=== PATIENT | female | born 1985 | race Caucasian/White ===

== ENCOUNTER → 2018-02-18 14:43 | Outpatient (CLI) | payer MEDICAID, SELFPAY ==
[2018-02-18 21:51] LABS: M R Staph aureus DNA By PCR Negative (Negative); Probe Check PASS; Specimen Processing Control PASS
--- OUTSIDE RECORDS SUMMARY | 2018-04-16 09:12 | XMS RPT_ITS ---
:1985 Author Organization OHIP Care Team Providers Name Role Phone Kervin Yost Attending Unavailable Kervin Yost Referring Unavailable KENDRA LR Primary Care Unavailable NewbillLuisito Admitting Unavailable NewbillLuisito Attending Unavailable Yeager, Edward E Primary Care Unavailable NewbillLuisito Attending Unavailable Yeager, Edward E Primary Care Unavailable Newbill, Luisito Lal Admitting Unavailable Newbill, Luisito Lal Admitting Unavailable Newbill, Luisito Lal Attending Unavailable Yeager, Edward E Primary Care Unavailable PROBLEMS PROBLEMS No Problem Records FoundPROCEDURES PROCEDURES No Procedure Records FoundRESULTS RESULTS M R STAPH AUREUS Collected: 02/18/2018 Status: F Source: KRISTY DNA BY PCR 2:43 PM [facility] REPOSITORY Order Comment: Source: NASAL SWAB TYPE CODE TESTS RESULT OUT OF RANGE REFERENCE UNITS LAB L8200.1100 Negative Normal MRSA Negative RESULT Performed By: #### L8200.1000 #### [facility] [address] [place], [address] Observed: 12/09/2017 Status: F Source: CARMEN C URINE 4:53 PM [facility] REPOSITORY Final Report: Rare Normal skin rebecca isolated Performed By: #### [id number] #### [facility] Subsection [address] [place] [address] ALLERGIES ALLERGIES DATE TYPE / CODE NAME / CODE REACTION SEVERITY SOURCE 01/12/2014 Drug No Known Unknown [facility] Allergy/416 Allergies/K00958 Hospital 637825(SNOM 0388(RXNORM) Repository ED CT) Drug/466668 Dilaudid N\T\V Sabianist 003(SNOMED [facility]) System Repository Drug/543874 morphine [id number] Sabianist 003(SNOMED [facility]) System Repository Drug/072067 No Known Sabianist 003(SNOMED Allergies [facility]) System Repository Drug/339328 Dilaudid Sabianist 003(OMED [facility]) System Repository ENCOUNTERS ENCOUNTERS ADMIT/DISCHARGE ACCOUNT NUMBER ADMITTING ENCOUNTER LOCATION SOURCE CLASS 02/18/2018 [id number] [facility] ding[facility] Repository 02/18/2018/02/19/20 [id number] 18 Luisito Lal g:QCareRoom: [facility] Repository 12/09/2017/12/10/19 [id number] [facility] Luisito Lal [facility] ding:.Lab Health System Rep[facility] 12/09/2017[facility]12/10[id number] Luisito Lal g:QCareRoom: [place] [address] Health System Repository 12/09/2017 [id number] Ambulatory [address] [place] [address] Repository PAYERS PAYERS ENCOUNTER GUARANTOR PAYER SUBSCRIBER SOURCE 02/18/2018 CLARK Jey [id number] Primary CLARK Gallo [facility] Insurance:ERIBERTO STENTZDOB: [facility] [id number] [address]Ria: 419 PLANPolicy Number: Repository [phone] ) [id number] Date:[id number] [address]VL: 02/18/2018 Secondary NOT GIVENUNK [place] Insurance:SELF PAY [facility] Number: Effective Repository Date:2018-02-18 02/18/2018 CLARK Khanna Primary CLARK Jackson STENTZDOB: Insurance:Formerly named [facility] STENTZDOB: [facility] [id number] [place], [place] Number: [place] [address]Kek: Date:2018-02-18Tel: [phone] (HP) Name:CD:[id number] (HP)Tel: (000) [address], [address] ([place]) [place] [address]RD: 12/09/2017 CLARK Khanna Primary CLARK Jackson STENTZDOB: [facility] [id number] [facility] Number: [place] [address]Wsi: Date:2017-12-09Tel: [phone] (HP) Name:CD:[id number] (HP)Tel: (000) [address], [address] ([place]) [place] [address]FB: 12/09/2017 CLARK Primary CLARK Jackson STENTZDOB: Insurance:Formerly named [facility] STENTZDOB: [facility] [id number] [place], [place] Number: [place] [address]Axo: Date:2017-12-09Tel: [phone] (HP) Name:CD:[id number] (HP)Tel: (000) [address], [address] ([place]) [place] [address]QM: 12/09/2017 CLARK STENTZDOB: Primary CLARK STENTZDOB: [place] Insurance:[place] [id number] [place], [place] PlanPolicy Number: [place], [place] [id number]: [id number] [id number]: Date:Plan () Name:[facility] O Betsey () [address], [place] [address]FT:
== END ==
PROVIDERS: Referring Provider Otolaryngology; Visit Provider Otolaryngology
DX: R09.81 Nasal congestion (principal)
CPT/HCPCS: 87641

== ENCOUNTER 2023-05-31 09:27 | Outpatient (RCR) | payer MEDICAID, SELFPAY ==
--- NOTE | 2023-05-31 10:51 | HP.PTEVAL ---
Patient's Visit Information Visit Information Visit Information: CLARK NOLASCO is a 38 year old F referred to Physical Therapy by Dr. Evan Villalobos DO with a diagnosis of Cervical HNP (C5-C6). Date of Evaluation: 05/31/23 Physical Therapist: WARREN Callahan Visit Plan Frequency: 2x /Week Duration: 4 Weeks Plan: 2X/ week for 4 weeks for neck ROM, posture exercises, UE AROM, UE strength with HEP....may try some manual traction and see if that helps. Subjective Subjective: For years she has had pain in her neck and radiating down her arms. She has had needling in her neck and did not help. He saw Dr Villalobos and they had an MRI about a year ago and now it is worse and they will do another one. Her MRI did show a HD at C5-C6. She has neck pain and pain across her shoulders and down both shoulder blades and it tingles and batitsa. She has B hand weakness and numbness in both hands (pointer and middle fingers). She is L handed. She uses a ice pack and MH pack to make her comfortable to lay in bed and puts her arms above her head to make it comfortable. Pain neck pain: Pain Intensity (Out of 10): 6 R arm pain: Pain Intensity (Out of 10): 6 L arm pain: Pain Intensity (Out of 10): 4 Objective Objective: L handed: C-spine AROM: Flexion 76, ext 10%, SB R 50% (increase pain) and SB L L 50%, Rot R 75 and Rot L 80% Bicep reflex R 0/3 and L 2+/3 UE AROM: B shoulder flexion approx 120 degrees and increase pain B shoulder approx ABD 120 degrees UE MMT: R shoulder flex 5.1 and L 5 R shoulder ABD 5.1 and L 4.3 R shoulder ER 6 and L 5.4 R shoulder IR 5.9 and L 6.8 Palpation: Tender along c-spine paraspinals and along the shoulders. Posture: sit with decent upright posture. Balance/Special Test Scores Oswestry Neck Score: 39 Goals Goal 1:: I HEP Goal Time Frame: 4-6 Weeks Goal 2:: Increase neck AROM (C-spine AROM: Flexion 76, ext 10%, SB R 50% (increase pain) and SB L L 50%, Rot R 75 and Rot L 80%) Goal Time Frame: 4-6 Weeks Goal 3:: Decrease neck and arm pain to 3/10 with ADL's Goal Time Frame: 4-6 Weeks Rehabilitation Potential Rehabilitation Potential: Good Anticipated Interventions Patient/Client Instruction: Educate patient on: Condition and Plan of Care For the Purpose of:: To decrease pain, To increase ROM, To improve nutrient delivery to tissue, To improve muscle performance and motor function, To improve ability to perform ADL's, To increase tolerance to activity/condition/position, To improve performance and independence with ADL's, To decrease level of supervision to perform tasks, To improve ability of physical actions for home/community/work/leisure, To improve health of tissue, To decrease soft tissue restriction and To increase flexibility/ROM Therapeutic Exercise to Include: Strength training, Body mechanics, Postural training, Flexibilty training, Passive ROM, Active ROM and Scapular Strength/Stabilization For the Purpose of:: To decrease pain, To improve muscle performance and motor function, To improve ability to perform ADL's, To increase tolerance to activity/condition/position, To improve performance and independence with ADL's, To decrease level of supervision to perform tasks, To improve ability of physical actions for home/community/work/leisure, To improve gait and locomotor functions, To decrease soft tissue restriction and To increase flexibility/ROM Manual Therapy Techniques to Include: Passive ROM and Soft tissue mobilization For the Purpose of:: To decrease pain, To increase ROM, To improve nutrient delivery to tissue, To improve muscle performance and motor function, To improve ability to perform ADL's, To increase tolerance to activity/condition/position, To improve performance and independence with ADL's, To decrease level of supervision to perform tasks, To improve ability of physical actions for home/community/work/leisure, To improve health of tissue, To decrease soft tissue restriction and To increase flexibility/ROM Thermo therapy (hot pack): Yes Ultrasound (thermal/non thermal): Yes For the Purpose of:: To decrease pain, To increase ROM and To improve nutrient delivery to tissue Text: Thank you for the opportunity to evaluate your patient. For Medicare and Medicare HMO plans, please review the plan of care and approve it. It will need to be FAXED BACK to us at [phone] for Medicare purposes. For Medicare only, by signing this I certify the plan of care. Please let me know if there are questions or concerns regarding this plan of care. Physician Signature: Date:
== END 2023-05-31 19:00 | disposition home or self-care (01) ==
LOC: PT 09:27
PROVIDERS: Referring Provider Orthopaedic Surgery; Visit Provider Orthopaedic Surgery
DX: M50.20 Other cervical disc displacement, unspecified cervical region (principal)
CPT/HCPCS: 97161; J2405

== ENCOUNTER → 2023-06-17 | Outpatient (CLI) | payer MEDICAID, SELFPAY ==
--- NOTE | 2023-06-17 12:30 | MRI_ITS ---
EXAM: MR CERVICAL SPINE WITHOUT INTRAVENOUS CONTRAST CLINICAL INDICATION: pain TECHNIQUE: Multiplanar and multisequence MR images of the cervical spine without intravenous contrast were performed. COMPARISON: Prior plain film May 27, 2023 showed mild disc space narrowing and mild C5-6 spondylosis. FINDINGS: VERTEBRAE: Straightening of the usual lordotic curvature. Normal craniocervical junction and cervicothoracic junction. No spondylolisthesis. SPINAL CORD: No edna cord impingement. Normal cord signal intensity. SOFT TISSUES: Unremarkable. No prevertebral soft tissue swelling. LYMPH NODES: Unremarkable. There is no cervical adenopathy. DISCS/SPINAL CANAL/NEURAL FORAMINA: C2-C3: Unremarkable. Normal disc height and morphology. Normal spinal canal. Normal neuroforamina. C3-C4: Unremarkable. Normal disc height and morphology. Normal spinal canal. Normal neuroforamina. C4-C5: Unremarkable. Normal disc height and morphology. Normal spinal canal. Normal neuroforamina. C5-C6: There is mild decreased height at C5-6. There is midline-left posterior osteophytes and associated mildly protruding disc, narrowing the ventral midline thecal sac to roughly 9 mm left lateral recess and proximal neural foramen, osteophyte-disc complex projecting roughly 4 mm to the left. C6-C7: Unremarkable. Normal disc height and morphology. Normal spinal canal. Normal neuroforamina. C7-T1: Unremarkable. Normal disc height and morphology. Normal spinal canal. Normal neuroforamina. MRI/Spine Cervical (Routine) IMPRESSION: Posterior ganwaji-ljx-uoku osteophyte-disc complexes at C5-6. Borderline spinal stenosis and proximal left neural foraminal stenosis at C5-6. No edna cord impingement. Electronically Signed: Estephania Orozco MD at 8:19 EDT ,
== END | disposition home or self-care (01) ==
LOC: MRI 11:30
PROVIDERS: Referring Provider Orthopaedic Surgery; Visit Provider Orthopaedic Surgery
DX: M50.20 Other cervical disc displacement, unspecified cervical region (principal)
CPT/HCPCS: 72141

== ENCOUNTER 2023-07-29 14:31 | Observation (INO) | payer MEDICAID, SELFPAY ==
--- NOTE | 2023-07-18 12:49 | EKG12_ITS ---
Test Reason : PRE-OP Blood Pressure : / mmHG Vent. Rate : 071 BPM Atrial Rate : 071 BPM P-R Int : 100 ms QRS Dur : 096 ms QT Int : 418 ms P-R-T Axes : 063 030 063 degrees QTc Int : 454 ms Sinus rhythm with short NC Otherwise normal ECG No previous ECGs available Confirmed by LEANNE RAMIREZ, CARMEN ([id number]), visual effects editor SASHA GARCIA ([id number]) on 07/22/2023 10:18:26 AM Referred By: Evan Villalobos Confirmed By:JACEY PERDOMO MD
[2023-07-18 13:28] LABS: Absolute Lymphocyte Count 2.04 X10^3/uL (0.83-4.51); Absolute Neutrophil Count 5.4 X10^3/uL (2.0-7.7); Basophil# 0.06 X10^3/uL; Basophil% 0.7 % (0-1); Eosinophil# 0.16 X10^3/uL; Eosinophils% 1.9 % (0-5); Hematocrit 43.8 % (37-47); Hemoglobin 14.4 g/dL (12.0-15.0); Lymphocyte # 2.04 X10^3/ul (0.83-4.51); Lymphocyte % 24.4 % (19-41); Mean Corp Hgb Conc 32.9 g/dL (32-36); Mean Corpuscular Volume 88.3 fL (81-99); Mean Platelet Vol. 9.8 fl (6.2-12.0); Monocyte# 0.68 X10^3/uL; Monocyte% 8.1 % (0-10); NRBC Flagged by Analyzer 0 % (0-5); Neutrophil # 5.41 X10^3/uL (2.7-7.7); Neutrophil % 64.7 % (47-70); Platelet Count 423 K/mm3 (150-450); RBC Distribution Width CV 14.2 % (11.6-14.6); RBC Distribution Width SD 45.6 fl (35.1-43.9); Red Blood Count 4.96 M/mm3 (4.2-5.4); White Blood Count 8.4 K/mm3 (4.4-11.0)
[2023-07-18 13:36] LABS: Partial Thromboplast Time 29.1 Seconds (24.1-36.2)
[2023-07-18 13:55] LABS: AST(SGOT) 39 U/L (15-37); Alanine Aminotransfer ALT/SGPT 97 U/L (13-56); Albumin, Serum 3.9 g/dL (3.2-5.0); Alkaline Phosphatase 113 U/L (45-117); Bilirubin, Direct 0.15 mg/dL (0.00-0.30); Globulin 3.4 g/dL (2.2-4.2); Magnesium 2.3 mg/dL (1.6-2.6); Protein, Total 7.3 g/dL (6.4-8.2)
[2023-07-18 13:59] LABS: Anion Gap 6 (5-15); BUN 13 mg/dL (7-18); BUN/Creat Ratio 16.8 RATIO (10-20); Calcium,Total 9.9 mg/dL (8.5-10.1); Chloride 107 mmol/L (98-107); Creatinine, Serum 0.77 mg/dL (0.55-1.02); EST Glomerular Filtration Rate 89 mL/min (>60); Est Glom Filt Rate - Afr Amer 107 mL/min (>60); Glucose 84 mg/dL (74-106); Sodium Level 138 mmol/L (136-145)
[2023-07-18 14:42] LABS: HIV - WCH Non-Reactive (Nonreactive); Hepatitis B Surface Antibody Reactive; Hepatitis C Antibody Non-Reactive (Nonreactive)
[2023-07-20 07:09] LABS: Hepatitis A AB, Total Negative (Negative)
--- NOTE | 2023-07-26 13:21 | PCM.HP.BLA ---
History and Physical Add?Addendum MR#: [id number] Acct: [id number] Name: ODALYS NOLASCO Rep #: [id number] : 1985 Provider: Dr. Evan Villalobos DO Age/Sex: 38/F Location: [facility] [place].MARLEN Status: Signed Intake Vital Signs 05/26/2412:12 Height 5 ft 7 in Weight: 207 lb 6 oz BMI 32.4 Intake Visit Reasons: CERVICAL SPINE Chief Complaint: Neck pain Accompanied by: Self Is patient in pain?: Yes Allergies morphine Allergy (Verified 05/27/23 13:18) Nauseaoxycodone Allergy (Verified 05/27/23 13:18) Nausea Medications buspirone 10 mg tablet 15 mg PO TID 05/27/23 [History Confirmed 05/27/23] fluoxetine 20 mg capsule mg PO 05/27/23 [History Confirmed 05/27/23] hydroxyzine HCl 25 mg tablet 25 mg PO BID PRN 05/27/23 [History Confirmed 05/27/23] PFSH Medical History (Updated 05/27/23 @ 13:[address] Evan Villalobos DO) Back problem Gallstones IBS (irritable bowel syndrome) PCOS (polycystic ovarian syndrome) Vitamin deficiency Surgical History History of arthroscopic knee surgery History of delivery History of dilatation and curettage Family History Daughter DiabetesGrandmother Hypertension CVA (cerebral vascular accident)Mother HypertensionUncle Lung cancer Social History household members: children Smoking Status: Current every day smoker alcohol intake: never HPI CERVICAL SPINE Details: This documentation accurately reflects the service provided and the decisions made by me, Dr. Evan Villalobos DO 05/27/23 1308. Part of today?s visit was documented by Yina LOVELL , acting as scribe. ODALYS NOLASCO is a 38 year old F here today for Cervical neck pain. Patient states that her neck pain is on the right side and has been going on the past month. Patient states no injury to it. Patent states she is taking ibuprofen for her pain. Patient is using heat but it isn't really helping. Patient has noticed the past month, month in a half her feet are hurting. Patient hands are numb and her middle finger and ring finger on the right hand don't want to bend completely. Patient does have radiation going down both arms. Both shoulder blades feel like they are on fire. Patient hasn't had any imagining done recently. Odalys Green after not having been seen in a couple of years. The past month her neck has gotten much worse. She gets posterior headaches now the pain however goes more down the right arm instead of the left but she still has some pain down the left arm 2. It goes to her thumb and index finger. She is describing a C6 radiculopathy. The pain has been worse than it ever was before. On a scale of 0-10 it is a 9 almost all the time. She states that she cannot live this way. When I walked in the room the patient had her right arm on top of her head. Every time I have ever seen this in my 38-year career it has been because of a ruptured disc on the side consistent with the arm. This relieves the pressure no doubt on the nerve. On examination she has a very positive Spurling's to the right side and a little bit positive to the left though not as bad. She also has pain down the arm with flexion of her neck or extension of her neck. She has some weakness of the extensors of the wrist on the right as compared to the left. This is very significant. She has 1+ triceps reflexes bilaterally. The right brachioradialis reflex is absent the left 1 is 1+. She also has a decreased to biceps reflex on the right as compared to the left. She has no long tract signs. Clonus is absent and Babinski's were downgoing. I x-rayed her today in the AP and lateral projection. I compared the x-rays to AP and lateral x-rays that we did 2 years ago. The C5-6 space is decreased a little compared to 2 years ago. Impression is that of herniated disc C5/6 with severe right C6 radiculopathy intractable pain and neurological deficit. No doubt she will need surgical intervention at some point. We also will need an MRI scan of the cervical spine. She will call my office tomorrow. Coding Level of Care Code Off vis,est,level 3 Diagnoses HNP (herniated nucleus pulposus), cervical M50.20
[2023-07-29] VITALS (15 sets, daily range): BP systolic 107–134; BP diastolic 58–84; PULSE 65–88; RESP 12–18; TEMP 36.2–36.6; O2SAT 92–99; BMI 32.8
[2023-07-29] MEDS: Lactated Ringers 1,000 ML 15 ML IV ×2 (08:32→14:51)
[2023-07-29] MEDS: dexAMETHasone 10 MG/ML Vial 8 MG IV (08:34)
[2023-07-29] MEDS: Magnesium 1 GM over 15 mins IV (08:34)
[2023-07-29] MEDS: Acetaminophen 500 MG Tablet 1000 MG PO (08:56)
[2023-07-29 09:26] LABS: Bedside Glucose 90 mg/dL (74-106)
--- NOTE | 2023-07-29 10:20 | DISC_PTH ---
PATIENT: CLARK CASE LOC: MS3 U#:[id number] AGE/SX: 38/F ROOM: [facility] RE07/29/[address]: Dr. Evan Villalobos DO : 1985 BED: 1 DIS: 07/30/2023 SPEC #: [id number] RECD: 07/29/23 18:07 STATUS: RAZIA REReena #: [id number] NORMA: 07/29/23 10:[address]: Evan Villalobos DEPT: SURGICAL PATHOLOGY RECD BY: Ranjana Lowe ENTERED: 07/30/23 10:13 SP TYPE: DISC OTHR DR: MD Dr. Noé Locke, DO No Primary Care Phys Tissues: Intervertebral disc, NOS Procedures: Surgery Specimen Level III HEADER OPERATION: ERAS, Anterior cervical fusion C5-6 PRE-OP DIAGNOSIS: Herniated nucleus pulposis, cervical TISSUE SUBMITTED: C5-6 disc MICROSCOPIC DIAGNOSIS C5-C6 disc: Fragments of fibrocartilaginous and hyaline cartilaginous tissue with focal degenerative and reactive changes. BRYNN/ 07/31/23 MICROSCOPIC DESCRIPTION Slides are reviewed. GROSS DESCRIPTION Received in fixative is one container labeled with the patient's name and designated C5-6. disc The specimen consists of multiple fragments of negron indurated tissue that in aggregate measure 5.0 x 3.0 x 0.3cm. The specimen is totally submitted in two cassettes. BRYNN/ 07/30/23 TC:5 CPT:76563
[2023-07-29] MEDS: Cefazolin 2 GM in 0.9% Normal Saline (100mL Bag) 100 ML IV (11:18)
--- NOTE | 2023-07-29 11:45 | RAD_ITS ---
STUDY: X-RAY - CERVICAL SPINE REASON FOR EXAM: Female, 38 years old. ANTERIOR FUSION C5-6 TECHNIQUE: Single lateral view(s) of the cervical spine were obtained. COMPARISON: None FINDINGS: The localization instrument is seen anterior to the C5-C6 disc space level. RAD/Spine 1 View Any Level IMPRESSION: The localization instrument is seen anterior to the C5-C6 disc space level. Electronically Signed: Wade Castillo MD at 13:31 EDT ,
[2023-07-29] MEDS: Heparin 10,000 UNITS/10 ML Vial 10000 UNITS (12:07)
[2023-07-29] MEDS: THROMBIN (RECOMBINANT) 20,000 UNIT VIAL 20000 UNIT TOPICAL (12:07)
--- NOTE | 2023-07-29 12:20 | RAD_ITS ---
STUDY: X-RAY - CERVICAL SPINE REASON FOR EXAM: Female, 38 years old. ANTERIOR FUSION C5-6 TECHNIQUE: Single lateral view(s) of the cervical spine were obtained. COMPARISON: None FINDINGS: The localization instrument is seen anterior to the C5-C6 disc space level. RAD/Spine 1 View Any Level IMPRESSION: The localization imaging is seen anterior to the C5-C6 disc space level. Electronically Signed: Wade Castillo MD at 14:48 EDT ,
--- NOTE | 2023-07-29 12:32 | RAD_ITS ---
STUDY: X-RAY - CERVICAL SPINE REASON FOR EXAM: Female, 38 years old. ANTERIOR FUSION C5-6 -- IMAGE 3 TECHNIQUE: Single lateral view(s) of the cervical spine were obtained. COMPARISON: Comparison is made with prior study done earlier today. FINDINGS: Normal anterior atlantoaxial articulation. Normal odontoid process. There is straightening of the normal cervical lordosis. The patient is status post anterior fusion and disc placement at the C5-C6 level. The soft tissue structures are unremarkable. RAD/Spine 1 View Any Level IMPRESSION: Status post anterior fusion and disc replacement at the C5-C6 level. Electronically Signed: Wade Castillo MD at 10:29 EDT ,
--- NOTE | 2023-07-29 14:39 | SUR.PHASEI ---
Made Dr. Villalobos aware pt received 8 mg of decadron in preop at 0845, then 8 more mg in OR at 1145. no new orders given
--- NOTE | 2023-07-29 14:44 | OP.PCM_ITS ---
Report of Operation Description of Surgical Findings:: Preoperative diagnosis: Herniated disc with foraminal stenosis bilaterally at C5-6 Postoperative diagnosis: Same Procedures: #1 anterior cervical fusion C5-6 CPT code 33163 #2 anterior spine plate C5-6 CPT code 75810/59 #3 insertion of cage C5-6 CPT code 87543 #4 bone marrow aspirate right iliac crest CPT code 23998 #5 allograft bone in cage C5-6 CPT code 55008 Surgeon: Dr. Villalobos Peer Health Promoter: Jia from surgery CLEAT FEEDER Anesthesia: General endotracheal by Cleo dna sequencing associate EBL: Less than 20 cc Drains: 1/4 inch Yara Complications: None Procedure: Patient was taken to the OR where she was placed in spine position on the operating table she was then placed under general endotracheal anesthesia. Neuromonitoring placed her leads on the patient. A Oden catheter was inserted. The neck and right crest area were then prepped and draped standard fashion. First I made a puncture incision over the right iliac crest entered with a Jamshidi needle tamped into place under the cortex. 50 cc of BMA were then obtained and these were handed off to the plastic surgery technician in the room. She the stem cells from all other cells concentrated them 10 times into about 4 5 cc and gave them back to us. I then made an incision starting at the predetermined point it was determined with an x-ray prior to surgery. In the midline and curving to the edge of the right sternocleidomastoid muscle in Langers lines. Subcutaneous tissues were incised the length of the skin incision. I then undermined the subcutaneous tissues in a cephalad and caudad direction put a self-retaining retractor in place. I then split the platysma longitudinally in line with its fibers. Then exploited the 3 tracheal fashion followed by the explantation of the 3 cervical fascia. In this fashion I was able to move the carotid to the right and the esophagus and trachea to the left exposing the precervical area. The disc thought to be C5-6 was then marked with a needle in it and an intraoperative x-ray was taken to confirm that we were indeed at C5-6. I marked the disc with cautery and remove the needle. Cauterized the edge of the coli muscles on either side elevated and gently off the disc base and the shadow line retractors were then put in place given us good exposure. I cut the anterior annulus with a 15 blade and removed the nucleus from then the disc base with pituitary rongeurs more nucleus was removed with pituitary rongeurs all the way back to near the posterior longitudinal ligament. Cartilage off the endplates was then removed with sharp small curettes. I put the distractor initially on the patient's left side directing the right side of the space given me good axis to the uncinate process and the back. Using a jennifer bur I was able to bur down the uncinate process into a thin shell directly overlying the base of the nerve root. This was then removed off the base of the nerve with sharp small curettes. This completely decompressed the right C6 nerve root in the foramen was checked and was found to be open. We then moved the distractor to the right side distracting the left and do the same exact thing with a jennifer bur removing the uncinate process down to a thin shell that was removed with curettes this also compressed the left C6 nerve root. I then removed all remaining cartilage off both endplates. This was done with curettes. I used the jennifer bur to flatten out the sides of the C6 vertebra. This would be for a better fit I then used the bur to bur the anterior osteophytes at the bottom L5 and the top of C6. Cautery was used to cauterize the anterior longitudinal ligament above and below the disc base. Once this blood was done the trials were done and we ended up with a 8 mm high large cage. The cage was then loaded with spongy allograft bone and it was then soaked in the patient's concentrated stem cells. With anesthesia pulling on the head this was then tamped into place and countersunk a couple of millimeters. A 24 mm plate was used centered on the first of 4 holes using an awl was put in place 2 into C6 and 2 into C5. 14 mm screws were used at all 4 points. Note that these were self locking mechanism Spyder plates. Amniotic membrane was then placed over the plate to prevent adhesions to the trachea or the esophagus. 1/4 inch [place] drain was inserted and the platysma was closed in running fashion with 5-0 Vicryl for closure of subcutaneous tissues with 5-0 Vicryl in interrupted fashion. This approximated the skin there was no need for outside stitches. A safety pin was placed through the 1/4 inch Yara drain. Sterile dressings were then applied. Note that the postoperative x-ray was taken at demonstrated excellent position of the cage the plate and the screws. This is the end of operative summary on Salina Díaz. This is Dr. Villalobos dictating.
--- NOTE | 2023-07-29 16:37 | PCM.CONS.GEN ---
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 Today is POD 0 pain management as per primary team. PT/OT on board fall precautions #Depression and anxiety: on fluoxetine and hydroxyzine as well as buspirone. #Nicotine dependence: Says she smokes a pack of cigarettes a day. Refuses nicotine patch as she says does not think she needs it while she is in the hospital. Counseled to quit. DVT prophylaxis: SCDs Thank you for the courtesy of the consult. We will continue to follow with you. HPI Consult Data Date of Consult: 07/29/23 HPI Narrative Reason for Consultation: consult for medical management HPI Narrative: CLARK CASE, is a 38 F with a PMH as outlined who was admitted to the service of spine surgery for herniated disc with foraminal stenosis at C5-C6. She had anterior cervical fusion at C5-C6 on 07/29/2023. Hospital service was consulted for medical management. Patient seen and examined after surgery. She did complain of pain and rated about 6-7/10. She denied any shortness of breath, palpitations, nausea vomiting or any other symptoms. Review of systems otherwise negative. She is on 4 L of oxygen provide but has otherwise remained stable. [facility] Medical History (Updated 07/17/23 @ 09:43 by Delfina Silva) Anxiety Back problem Chronic cough Depression Easy bruising Fatty liver Gallstones Gastric reflux History of IBS History of pain when walking IBS (irritable bowel syndrome) Injury of head and neck Leg cramps Restless legs Shortness of breath on exertion Smoker Substance abuse Syncope Vitamin deficiency Home Medications buspirone 10 mg tablet 15 mg PO TID 05/27/23 [History Last Taken Unknown] hydroxyzine HCl 25 mg tablet 25 mg PO BID PRN PRN anxiety 05/27/23 [History Last Taken 07/28/23] buspirone 15 mg tablet 15 mg PO TID 07/29/23 [History Last Taken 07/28/23] fluoxetine 40 mg capsule 40 mg PO DAILY 07/29/23 [History Last Taken 07/28/23] valacyclovir 1 gram tablet 1,000 mg PO BID PRN PRN herpes 07/29/23 [History Last Taken 07/24/23] Allergy/AdvReac Type Severity Reaction Status Date / Time morphine Allergy Nausea Verified 07/29/23 08:28 oxycodone Allergy Nausea Verified 07/29/23 08:28 Family History Daughter Diabetes Grandmother Hypertension CVA (cerebral vascular accident) Mother Hypertension Uncle Lung cancer Surgical History (Updated 07/17/23 @ 09:43 by Delfina Silva) H/O laparoscopy History of arthroscopic knee surgery History of delivery History of dilatation and curettage History of esophagogastroduodenoscopy (EGD) Hx laparoscopic cholecystectomy Social History household members: children Smoking Status: Current every day smoker tobacco type: cigarettes alcohol intake: never ROS Constitutional Constitutional: Denies anorexia, chills, fatigue, fever(s), malaise or weakness Eyes Eyes: Denies change in vision ENT HEENT: Denies dysphagia or headache(s) Cardiovascular Cardiovascular: Denies chest pain, dyspnea on exertion, edema, lightheadedness, orthopnea, palpitations, rapid heart rate or syncope Respiratory/Chest Respiratory/Chest: Denies cough, dyspnea, productive cough, shortness of breath at rest, shortness of breath with exertion or wheezing Gastrointestinal Gastrointestinal: Denies abdominal pain, constipation, nausea or vomiting Musculoskeletal Musculoskeletal: Denies back pain or joint pain Neurologic Neurologic: Denies confusion, disequilibrium, dizziness, focal weakness, headache(s), seizures or syncope Psychiatric Psychiatric: Denies anxiety or depression Hematologic/Lymphatic Hematologic/Lymphatic: Denies anemia Physical Exam Const alert, oriented x3 and no apparent distress General Appearance: cooperative HEENT normocephalic, head/scalp atraumatic, hearing grossly normal bilaterally and moist oral mucous membranes Mouth: oral and palatal mucosa normal Eyes PERRL, EOMs intact bilaterally and conjunctivae normal Neck no lymphadenopathy, supple and no JVD Resp normal respiratory effort, no retractions, no use of accessory muscles and clear to auscultation bilaterally Cardio regular rate, regular rhythm, S1 normal heart sound, S2 normal heart sound and no murmurs GI normal to inspection, nondistended, normoactive bowel sounds, soft to palpation, non-tender and non-distended Extremity normal to inspection, full ROM and no clubbing, cyanosis or edema Skin Skin Narrative: intact dressing over anterior lower neck at surgical site Neuro oriented x3, CN's II-XII intact bilaterally, moves all extremities, no focal motor deficits and no sensory deficits noted Neuro Narrative: has a soft neck collar. Motor Exam: strength 5/5 throughout Psych affect normal Lab / Micro Data 07/18/23 13:05 07/18/23 13:05 Labs: Laboratory Results - last 24 hr 07/29/23 08:44: POC Glucose 90 Imaging Radiology Impression Spine X-Ray 07/29/23 12:20 IMPRESSION: The localization imaging is seen anterior to the C5-C6 disc space level. Electronically Signed: Wade Castillo MD at 14:48 EDT , Charges/Coding Visit Charges Inpatient E&M: 13135 Subs Hosp L2
[2023-07-29] MEDS: Lactated Ringers 1,000 ML 100 ML IV (17:18)
[2023-07-29] MEDS: traMADol 50 MG Tablet PO (17:19)
[2023-07-29] MEDS: dexAMETHasone 4 MG/ML Vial IV ×2 (17:19→23:15)
[2023-07-29] MEDS: 0.9% Saline Lock 10 ML Syringe IV (17:20)
[2023-07-29] MEDS: Cefazolin 1 GM/50 ML BAG IV (18:41)
[2023-07-29] MEDS: Ondansetron 4 MG/2 ML Vial IV (21:30)
[2023-07-29] MEDS: Morphine 2 MG/ML Syringe IV (21:32)
[2023-07-30 02:38] VITALS: BP 119/60; PULSE 66; RESP 15; TEMP 36.2; O2SAT 94
[2023-07-30] MEDS: traMADol 50 MG Tablet PO ×2 (03:18→09:18)
[2023-07-30] MEDS: Cefazolin 1 GM/50 ML BAG IV (03:20)
[2023-07-30 04:00] VITALS: RESP 15; O2SAT 97
[2023-07-30] MEDS: Lactated Ringers 1,000 ML 100 ML IV (04:23)
[2023-07-30] MEDS: dexAMETHasone 4 MG/ML Vial 2 MG IV ×2 (05:01→10:25)
[2023-07-30] MEDS: Acetaminophen 500 MG Tablet 1000 MG PO ×2 (05:47→13:11)
[2023-07-30 08:10] VITALS: BP 117/71; PULSE 63; RESP 18; TEMP 36.6; O2SAT 98
[2023-07-30] MEDS: Fluoxetine HCl 40 MG CAPSULE PO (08:14)
[2023-07-30] MEDS: busPIRone 15 MG TABLET PO ×2 (08:14→13:11)
[2023-07-30] MEDS: 0.9% Saline Lock 10 ML Syringe IV (10:25)
[2023-07-30] MEDS: oxyCODONE 5 MG Tablet PO (10:25)
--- NOTE | 2023-07-30 11:00 | CASEMGMT ---
DAMARIS ZENDEJAS Assessment: Face to Face with pt for initial transition planning/care coordination assessment. RN AASHISH introduced self and role at [facility], pt voices understanding and consents to assessment. Pt lying in bed in no distress. Pt is A&O x4 and answers all questions appropriately at this time. Care providers, pharmacy, and demographics verified/updated. Admitting Dx: HNP C5/6 PCP: None - provide pt with a list of local PCP Specialists: Devi Villalobos; [phone], Psychiatrist Preferred Pharmacy: [facility] Insurance: [employer] Prescription Benefit: yes LNOK: Narciso - , Dorota - Sister Living Arrangements: Pt lives with sister, neice and daughter in a 1 story home with 3 steps and a handrail to enter. Pt stated she would like a walker. Denies any DC concerns. Transportation: Pt drives self and denies concerns with transportation. Sister, and daughter able to drive her until able to drive self. DME: Shower chair HHC/SNF: Denies Hx of. Pt states no concerns with going home at time of dc. Pt states no further concerns/needs. CM to follow. Advised pt to ask CM if any further question/concerns/needs arise, voices understanding. Pt Goal: Home Plan: Home with walker Freddy OCAMPO CM
--- NOTE | 2023-07-30 11:13 | CASEMGMT ---
RN CM provided verbal list of local in network DME providers. Pt [facility].
--- NOTE | 2023-07-30 12:32 | PCM.DC ---
Discharge Instructions Activity May shower in (days): 4 Lifting Restrictions: 15# Dressing / Incision Remove Dressing in: 3 days Follow Up Care Test Results: Test results from this visit will be discussed in further detail at your follow-up appointment, if applicable. Discharge Plan Admission Admit Date/Time: 07/29/23 14:31 Attending Provider: Evan Villalobos Primary Care Provider: Care Physician,No Primary Consulting Providers: Con Pat; Noé Ellis Discharge Orders/Prescriptions Prescriptions: No Action buspirone 10 mg tablet 15 mg PO TID hydroxyzine HCl 25 mg tablet 25 mg PO BID PRN PRN (Reason: anxiety) Patient Comments: TAKE 1 TO 2 TABLETS BY MOUTH EVERY 6 TO 8 HOURS NEEDED FOR ANXIETY buspirone 15 mg tablet 15 mg PO TID fluoxetine 40 mg capsule 40 mg PO DAILY valacyclovir 1 gram tablet 1,000 mg PO BID PRN PRN (Reason: herpes) oxycodone-acetaminophen 5-325 mg tablet 1 tab PO Q6H PRN (Reason: pain) 10 Days Qty: 40 0RF Other Ambulatory Orders: ,Urine (Routine) Timeframe: [id number] Facility: [facility] - Location: Laboratory Ordered By: Dr. Con Pat Referrals / Follow Up: Care Physician,No Primary [Primary Care Provider] - Disposition Disposition (needs filled in before D/C Order can be placed): Home, Self Care
--- NOTE | 2023-07-30 12:42 | CASEMGMT ---
RN AASHISH spoke with pt, she states she spoke with Dr. Villalobos and is now not needing a walker.
--- NOTE | 2023-07-30 13:11 | CPS ---
patient refused. states she is being discharged and will take it home and do it.
[2023-07-30 13:15] VITALS: BP 135/83; PULSE 60; RESP 18; TEMP 36.5; O2SAT 96
--- NOTE | 2023-07-30 14:22 | PCM.DC.SUM ---
Providers Date of Admission: 07/29/23 Primary Care Physician: No Primary Care Phys Attending Physician: This is Dr. Villalobos dictating a discharge summary on patient Odalys Díaz. This patient was admitted yesterday and underwent anterior cervical fusion at the C5-6 level. He tolerated the procedure well. She was doing very good this afternoon her arm pain was completely resolved and she was very happy about that. Her voice was relatively clear and she had only a little difficulty swallowing her food. Neurologically she was intact. She was given post AC DIF protocol regarding her activities over the next several days. She already has an appointment to see me in the office. She knows to take the dressing off on Saturday and Saturday she can start taking showers. I gave her some Percocet for pain for home. This is the end of discharge summary on Salina Díaz. This is Dr. Villalobos dictating. Consultations 07/29/23 16:19 Consult: Hospitalist Routine Consulting Provider: Yuli Castillo Reason for Consult: med management EMERGENT Consult: No MD Notified: Yes Date Notified: 07/29/23 Time Notified: 16:36 Method of Notification: Text Reason For Visit: HNP C5/6 Diagnosis Discharge Diagnosis (1) HNP (herniated nucleus pulposus), cervical: Status: Acute Code(s): M50.20 - Other cervical disc displacement, unspecified cervical region Medications at Discharge Home Medications buspirone 10 mg tablet 15 mg PO TID 05/27/23 hydroxyzine HCl 25 mg tablet 25 mg PO BID PRN PRN anxiety 05/27/23 buspirone 15 mg tablet 15 mg PO TID 07/29/23 fluoxetine 40 mg capsule 40 mg PO DAILY 07/29/23 valacyclovir 1 gram tablet 1,000 mg PO BID PRN PRN herpes 07/29/23 oxycodone-acetaminophen 5 mg-325 mg tablet 1 tab PO Q6H PRN pain 10 days #40 tabs 07/30/23 Weight / BMI Weight Weight: 209 lb 7.026 oz Body Mass Index (BMI) 32.8 ABG / Lab / Microbiology Data 07/18/23 13:05 07/18/23 13:05 Microbiology: Microbiology 07/18/23 13:05 Swab (Method) Nasal Screen MRSA/MSSA - Final Radiography Diagnostic Testing: Radiology Impression Spine X-Ray 07/29/23 11:45 IMPRESSION: The localization instrument is seen anterior to the C5-C6 disc space level. Electronically Signed: Wade Castillo MD at 13:31 EDT , Spine X-Ray 07/29/23 12:20 IMPRESSION: The localization imaging is seen anterior to the C5-C6 disc space level. Electronically Signed: Wade Castillo MD at 14:48 EDT , Spine X-Ray 07/29/23 12:32 IMPRESSION: Status post anterior fusion and disc replacement at the C5-C6 level. Electronically Signed: Wade Castillo MD at 10:29 EDT , D/C Instructions May shower in (days): 4 Meaningful Use Info Meaningful Use Meaningful Use Diagnoses (Choose all that apply): None applicable Ischemic Stroke Statin Dosing Therapy Reference: STATIN DOSE THERAPY REFERENCE: * Patients > 75 years receive moderate or high dose statin therapy. * Patients 75 years or YOUNGER should receive HIGH intensity statin dose unless contraindicated. You will be required to document reason for non-treatment if statin daily dose does not meet guidelines. HIGH DOSE STATIN THERAPY DAILY Atorvastatin > than or = to 40 mg Rosuvastatin > than or = to 20 mg Amlodipine + Atorvastatin > than or = to 2.5/40 mg Ezetimibe + Simvastatin 10/80 mg Simvastatin 80mg Discharge Plan Admission Admit Date/Time: 07/29/23 14:31 Attending Provider: Evan Villalobos Primary Care Provider: Care Physician,No Primary Consulting Providers: Farzana Pat Eric Discharge Orders/Prescriptions Prescriptions: No Action buspirone 10 mg tablet 15 mg PO TID hydroxyzine HCl 25 mg tablet 25 mg PO BID PRN PRN (Reason: anxiety) Patient Comments: TAKE 1 TO 2 TABLETS BY MOUTH EVERY 6 TO 8 HOURS NEEDED FOR ANXIETY buspirone 15 mg tablet 15 mg PO TID fluoxetine 40 mg capsule 40 mg PO DAILY valacyclovir 1 gram tablet 1,000 mg PO BID PRN PRN (Reason: herpes) oxycodone-acetaminophen 5-325 mg tablet 1 tab PO Q6H PRN (Reason: pain) 10 Days Qty: 40 0RF Other Ambulatory Orders: ,Urine (Routine) Timeframe: [id number] Facility: [facility] - Location: Laboratory Ordered By: Dr. Con Pat Referrals / Follow Up: Care Physician,No Primary [Primary Care Provider] - Disposition Disposition (needs filled in before D/C Order can be placed): Home, Self Care
== END 2023-07-30 13:37 | disposition home or self-care (01) ==
LOC: SDC 15:10 → MS3 15:10
PROVIDERS: Anesthesiology; Admitting Provider Orthopaedic Surgery; Referring Provider Orthopaedic Surgery; Visit Provider Orthopaedic Surgery
PROC: (CPT 22551; principal; 2023-07-29 09:50)
DX: M50.20 Other cervical disc displacement, unspecified cervical region (principal); M48.02 Spinal stenosis, cervical region; F17.210 Nicotine dependence, cigarettes, uncomplicated; F41.9 Anxiety disorder, unspecified; F32.A Depression, unspecified; Z79.899 Other long term (current) drug therapy; K21.9 Gastro-esophageal reflux disease without esophagitis; K58.9 Irritable bowel syndrome, unspecified; Z86.2 Personal history of diseases of the blood and blood-forming organs and certain disorders involving the immune mechanism
CPT/HCPCS: 22551; 22845; 22853; 20939; 20930; 00670; 36415; 72020; 80048; 80076; 82962; 83735; 85025; 85610; 85730; 86703; 86706; 86708; 86803; 87081; 88304; 93005; 96361; 96365; 96366; 96375; 96376; 97161; 99221; 99406; C1713; J7120; A4216; G0378; J2405; J3475